=== PATIENT | female | born 1940 | race Caucasian/White ===

== ENCOUNTER → 2018-09-10 09:58 | Outpatient (CLI) | payer BC, SELFPAY ==
[2018-09-10 12:30] LABS: Anion Gap 10 (5-15); BUN 12 mg/dL (7-18); BUN/Creat Ratio 17.6 RATIO (10-20); Calcium,Total 8.9 mg/dL (8.5-10.1); Chloride 104 mmol/L (98-107); Cholesterol 138 mg/dL (200); Creatinine, Serum 0.68 mg/dL (0.55-1.02); EST Glomerular Filtration Rate 89 mL/min (>60); Est Glom Filt Rate - Afr Amer 107 mL/min (>60); Glucose 90 mg/dL (74-106); High Density Lipoprotein 33 mg/dL; Potassium 3.8 mmol/L (3.5-5.1); Sodium Level 143 mmol/L (136-145); T4 Total, Thyroxin 12.5 ug/dL (4.8-13.9); Thyroid Stim Hormone (TSH) 1.54 uIU/mL (0.358-3.74); Triglycerides 154 mg/dL; Very Low Density Lipoprotein 31 mg/dL (5-40)
== END ==
PROVIDERS: Family Provider Family Medicine; PCP Family Medicine; Visit Provider Family Medicine
DX: I10 Essential (primary) hypertension (principal); E03.9 Hypothyroidism, unspecified
CPT/HCPCS: 36415; 80048; 80061; 84436; 84443

== ENCOUNTER → 2019-05-26 | Outpatient (CLI) | payer BC, SELFPAY ==
[2019-05-26 12:42] LABS: Anion Gap 7 (5-15); BUN 14 mg/dL (7-18); BUN/Creat Ratio 17.8 RATIO (10-20); Calcium,Total 9.1 mg/dL (8.5-10.1); Chloride 104 mmol/L (98-107); Creatinine, Serum 0.79 mg/dL (0.55-1.02); EST Glomerular Filtration Rate 75 mL/min (>60); Est Glom Filt Rate - Afr Amer 91 mL/min (>60); Glucose 91 mg/dL (74-106); Sodium Level 140 mmol/L (136-145)
== END | disposition home or self-care (01) ==
LOC: MFPLAB 09:49
PROVIDERS: Family Provider Family Medicine; PCP Family Medicine; Referring Provider Family Medicine; Visit Provider Family Medicine
DX: I10 Essential (primary) hypertension (principal)
CPT/HCPCS: 36415; 80048

== ENCOUNTER → 2019-11-24 10:07 | Outpatient (CLI) | payer BC, SELFPAY ==
[2019-11-24 13:15] LABS: Anion Gap 5 (5-15); BUN 13 mg/dL (7-18); BUN/Creat Ratio 16.6 RATIO (10-20); Calcium,Total 9.5 mg/dL (8.5-10.1); Chloride 104 mmol/L (98-107); Creatinine, Serum 0.78 mg/dL (0.55-1.02); EST Glomerular Filtration Rate 75 mL/min (>60); Est Glom Filt Rate - Afr Amer 91 mL/min (>60); Glucose 97 mg/dL (74-106); Potassium 3.9 mmol/L (3.5-5.1); Sodium Level 137 mmol/L (136-145); T4 Total, Thyroxin 13.4 ug/dL (4.8-13.9); Thyroid Stim Hormone (TSH) 1.88 uIU/mL (0.358-3.74)
== END ==
PROVIDERS: PCP Family Medicine; Visit Provider Family Medicine
DX: I10 Essential (primary) hypertension (principal); E03.9 Hypothyroidism, unspecified
CPT/HCPCS: 36415; 80048; 84436; 84443

== ENCOUNTER → 2020-05-24 09:44 | Outpatient (CLI) | payer BC, SELFPAY ==
[2020-05-24 12:46] LABS: Anion Gap 5 (5-15); BUN 15 mg/dL (7-18); BUN/Creat Ratio 19.6 RATIO (10-20); Calcium,Total 9.3 mg/dL (8.5-10.1); Chloride 104 mmol/L (98-107); Creatinine, Serum 0.76 mg/dL (0.55-1.02); EST Glomerular Filtration Rate 77 mL/min (>60); Est Glom Filt Rate - Afr Amer 93 mL/min (>60); Glucose 95 mg/dL (74-106); Potassium 3.7 mmol/L (3.5-5.1); Sodium Level 138 mmol/L (136-145)
== END ==
PROVIDERS: PCP Family Medicine; Referring Provider Family Medicine; Visit Provider Family Medicine
DX: I10 Essential (primary) hypertension (principal)
CPT/HCPCS: 36415; 80048

== ENCOUNTER → 2020-11-30 10:34 | Outpatient (CLI) | payer BC, SELFPAY ==
[2020-11-30 12:44] LABS: Microalbumin,Random Urine 7.8 mg/L (NO RANGE EST.)
[2020-11-30 13:06] LABS: Anion Gap 9 (5-15); BUN 15 mg/dL (7-18); BUN/Creat Ratio 19.6 RATIO (10-20); Calcium,Total 9.2 mg/dL (8.5-10.1); Chloride 102 mmol/L (98-107); Creatinine, Serum 0.77 mg/dL (0.55-1.02); EST Glomerular Filtration Rate 77 mL/min (>60); Est Glom Filt Rate - Afr Amer 93 mL/min (>60); Glucose 100 mg/dL (74-106); Potassium 3.8 mmol/L (3.5-5.1); Sodium Level 137 mmol/L (136-145); T4 Total, Thyroxin 11.5 ug/dL (4.8-13.9); Thyroid Stim Hormone (TSH) 1.26 uIU/mL (0.358-3.74)
== END ==
PROVIDERS: PCP Family Medicine; Referring Provider Family Medicine; Visit Provider Family Medicine
DX: E03.9 Hypothyroidism, unspecified (principal); I10 Essential (primary) hypertension
CPT/HCPCS: 36415; 80048; 82043; 84436; 84443

== ENCOUNTER → 2021-05-30 09:45 | Outpatient (CLI) | payer BC, SELFPAY ==
[2021-05-30 12:47] LABS: Anion Gap 6 (5-15); BUN 16 mg/dL (7-18); BUN/Creat Ratio 21.8 RATIO (10-20); Calcium,Total 9.2 mg/dL (8.5-10.1); Chloride 103 mmol/L (98-107); Creatinine, Serum 0.74 mg/dL (0.55-1.02); EST Glomerular Filtration Rate 81 mL/min (>60); Est Glom Filt Rate - Afr Amer 98 mL/min (>60); Glucose 93 mg/dL (74-106); Potassium 3.7 mmol/L (3.5-5.1); Sodium Level 137 mmol/L (136-145)
== END ==
PROVIDERS: PCP Family Medicine; Referring Provider Family Medicine; Visit Provider Family Medicine
DX: I10 Essential (primary) hypertension (principal)
CPT/HCPCS: 36415; 80048

== ENCOUNTER → 2022-06-13 | Outpatient (CLI) | payer BC, SELFPAY ==
[2022-06-13 12:29] LABS: Anion Gap 7 (5-15); BUN 13 mg/dL (7-18); BUN/Creat Ratio 17.7 RATIO (10-20); Calcium,Total 9.2 mg/dL (8.5-10.1); Chloride 100 mmol/L (98-107); Cholesterol 136 mg/dL (200); Creatinine, Serum 0.74 mg/dL (0.55-1.02); EST Glomerular Filtration Rate 80 mL/min (>60); Est Glom Filt Rate - Afr Amer 97 mL/min (>60); Glucose 97 mg/dL (74-106); High Density Lipoprotein 42 mg/dL; Potassium 3.7 mmol/L (3.5-5.1); Sodium Level 138 mmol/L (136-145); T4 Total, Thyroxin 10.1 ug/dL (4.8-13.9); Triglycerides 126 mg/dL; Very Low Density Lipoprotein 25 mg/dL (5-40)
== END | disposition home or self-care (01) ==
LOC: MFPLAB 10:05
PROVIDERS: PCP Family Medicine; Referring Provider Family Medicine; Visit Provider Family Medicine
DX: I10 Essential (primary) hypertension (principal); E03.9 Hypothyroidism, unspecified
CPT/HCPCS: 36415; 80048; 80061; 84436; 84443

== ENCOUNTER 2022-09-16 04:40 | Emergency (ER) | payer BC, SELFPAY ==
[2022-09-16 04:41] VITALS: BP 173/78; BP 188/82; PULSE 139; PULSE 80; RESP 17; RESP 18; TEMP 36.6; O2SAT 96; O2SAT 98; BMI 33.6
--- NOTE | 2022-09-16 05:00 | EKG12_ITS ---
Test Reason : CP Blood Pressure : / mmHG Vent. Rate : 073 BPM Atrial Rate : 073 BPM P-R Int : 240 ms QRS Dur : 084 ms QT Int : 394 ms P-R-T Axes : 038 019 036 degrees QTc Int : 434 ms Sinus rhythm with 1st degree A-V block with occasional Premature ventricular complexes Otherwise normal ECG Confirmed by ALEJANDRINA SANTILLAN, DOMINGA ([id number]), telegraph editor DANITA OBRIEN ([id number]) on 09/18/2022 11:24:52 AM Referred By: Vinnie Confirmed By:DOMINGA TINOCO MD
--- NOTE | 2022-09-16 05:06 | EX.ED.DYSGE1 ---
HPI History of Present Illness Chief Complaint: Chest Pain Narrative Narrative: Patient is an 82-year-old female with past medical history of hypertension hypothyroidism and PVCs. She states that throughout the day she has had bouts of midsternal chest discomfort. She describes this as a pressure. She states that if she passes gas or belches this seems to resolve her symptoms. She states there is been no nausea vomiting diaphoresis or shortness of breath associated with this. She states that the symptoms have been recurrent throughout the day and it was difficult for her to sleep. She states that she kept thinking how females present atypically for cardiac disease and had concerned so therefore comes in for evaluation. She does states she took a full-strength aspirin prior to arrival [facility] Medical History Congestive heart failure (CHF) History of left heart catheterization Home Medications aspirin 325 mg tablet 325 mg PO DAILY 09/16/22 [History Last Taken Unknown] dicyclomine 20 mg tablet 20 mg PO 4X/DAY PRN PRN Abdominal bloating/spasm #28 tabs 09/16/22 [Rx Last Taken Unknown] doxycycline hyclate 100 mg capsule 100 mg PO BID 7 days #14 caps 09/16/22 [Rx Last Taken Unknown] hydrochlorothiazide 12.5 mg tablet 12.5 mg PO DAILY 09/16/22 [History Last Taken Unknown] levothyroxine 50 mcg capsule 50 mcg PO DAILY 09/16/22 [History Last Taken Unknown] lisinopril 20 mg tablet 20 mg PO DAILY 09/16/22 [History Last Taken Unknown] metoprolol tartrate 50 mg tablet 50 mg PO DAILY 09/16/22 [History Last Taken Unknown] potassium chloride 2.5 mEq tablet 10 meq PO DAILY 09/16/22 [History Last Taken Unknown] zinc oxide 40 % topical ointment 1 applic topical DAILY #99 grams 09/16/22 [Rx Last Taken Unknown] Allergy/AdvReac Type Severity Reaction Status Date / Time Penicillins Allergy Itching Verified 09/16/22 04:45 Surgical History (Updated 09/16/22 @ 04:47 by Salena Dave) H/O: hysterectomy Hx of cholecystectomy Social History Smoking Status: Former smoker ROS ROS ED Constitutional Constitutional ED: Denies chills or fever(s) ENT ENT ED: Denies sore throat Cardiovascular Cardiovascular: Reports chest pain and palpitations; Denies racing heartbeat Respiratory/Chest Respiratory/Chest: Denies cough or dyspnea Gastrointestinal Gastrointestinal: Denies abdominal pain, diarrhea, nausea or vomiting Genitourinary Genitourinary ED: Denies dysuria Musculoskeletal Musculoskeletal: Denies back pain or myalgias Integumentary Denies rash Neurologic Neurologic: Denies headache(s) Hematologic/Lymphatic Hematologic/Lymphatic: Denies easy bleeding or easy bruising EXAM Physical Exam Const Vital Signs: 09/16/22 04:41 09/16/22 04:41 09/16/22 07:06 Temperature 97.9 F Temperature Source Temporal Pulse Rate 80 139 H 60 Respiratory Rate 18 17 14 Blood Pressure 188/82 H 173/78 H 118/65 Blood Pressure Mean 117 109 82 Pulse Ox 98 96 97 Oxygen Delivery Method Room Air Room Air Room Air Positive well nourished and well developed General Appearance ED: well developed HEENT HEENT Narrative: Normocephalic atraumatic Eyes PERRL and EOMs intact bilaterally Neck supple and no JVD Chest Wall palpation of chest normal Chest Narrative: No bony deformity or crepitance Resp normal respiratory effort and clear to auscultation bilaterally Cardio regular rate and regular rhythm Rate: other Other Details: Radial pulses are plus 2 out of 4 bilaterally are equal and symmetric Carotid pulses are equal and symmetric as well There is an occasional ectopic beat noted GI normal to inspection, nondistended, normoactive bowel sounds, non-tender, non-distended and no masses GI Narrative: No voluntary guarding or rigidity. No pulsatile mass or fluid wave Auscultation: normoactive bowel sounds Palpation: soft Extremity normal to inspection Extremity Narrative: No asymmetric edema no pitting edema negative Homans' sign bilaterally Neuro oriented x3 and CN's II-XII intact bilaterally Sensorium / Orientation: alert Psych mental status grossly normal Skin Skin Narrative: Along the left upper medial gluteal muscle/skin there is a small 1 cm by half centimeter area of erythema with skin breakdown and granulation tissue present. There is slight surrounding erythema concerning for developing cellulitis. No induration or fluctuance noted to suggest abscess. No lymphangitic streaking. No crepitance to suggest Everett's gangrene. MDM MDM MDM Narrative Medical decision making narrative: Patient presented to the ER slightly hypertensive but has a past medical history of this. Her report of atypical chest pain that seems to improve with belching and passing gas is not consistent with cardiac disease. However patient does have risk factors for CAD and secondary to this a basic cardiac work-up was obtained. Initial troponin was normal at 6 and delta shows slight variation with a 2-hour repeat at 8. Her chest x-ray revealed no acute findings. She was given oral Bentyl and did report improvement of her symptoms. Therefore at this time as EKG shows normal sinus rhythm initial and delta troponin is flat and patient's had improvement of symptoms with antispasmodic I do not feel there is need for further evaluation or treatment in the ER and she is otherwise safe for discharge. As the small area of soft tissue breakdown does not show changes consistent with a drainable abscess there is no need for incision and drainage. Lab Data Attestation: I reviewed the patient's lab results. Labs: Laboratory Results - last 24 hr 09/16/22 09/16/22 09/16/22 04:58 04:58 06:50 WBC 6.2 RBC 4.35 Hgb 13.2 Hct 40.4 MCV 92.9 MCH 30.3 MCHC 32.7 RDW Std Deviation 43.8 RDW Coeff of Ronan 12.7 Plt Count 198 MPV 10.1 Immature Gran % (Auto) 0.500 Neut % (Auto) 62.5 Lymph % (Auto) 22.7 Bath % (Auto) 11.0 H Eos % (Auto) 2.8 Baso % (Auto) 0.5 Absolute Neuts (auto) 3.9 Absolute Lymphs (auto) 1.40 Nucleated RBC % 0 Sodium 137 Potassium 4.1 Chloride 103 Carbon Dioxide 29.0 Anion Gap 5 BUN 15 Creatinine 0.87 Estim Creat Clear Calc 37.62 Est GFR (MDRD) Af Amer 80 Est GFR (MDRD) Non-Af 66 BUN/Creatinine Ratio 17.3 Glucose 105 Calcium 8.8 Magnesium 2.1 Troponin I High Sens 6 8 TSH 3.23 Radiography Diagnostic Testing: Clinical Impression(s) from Imaging Studies Chest X-Ray 09/16/22 05:20 IMPRESSION: No acute cardiopulmonary disease. Electronically Signed: Barry Keyes MD at 5:40 EST , Chest x-ray as interpreted by the emergency medicine physician reveals no acute infiltrate pneumothorax or pleural effusion Discharge Plan Triage Chief Complaint: Chest Pain ED Provider: Fortino [place] Dx/Rx/DC Orders Clinical Impression: Nonspecific chest pain, Cellulitis, gluteal, Hypertension Instructions: Cellulitis Dc, ED Chest Pain, Uncertain Cause Prescriptions: New dicyclomine 20 mg tablet 20 mg PO 4X/DAY PRN PRN (Reason: Abdominal bloating/spasm) Qty: 28 0RF zinc oxide 40 % ointment 1 applic topical DAILY Qty: 99 0RF doxycycline hyclate 100 mg capsule 100 mg PO BID 7 Days Qty: 14 0RF No Action aspirin 325 mg Tablet 325 mg PO DAILY lisinopril 20 mg Tablet 20 mg PO DAILY metoprolol tartrate 50 mg Tablet 50 mg PO DAILY potassium chloride 2.5 mEq Tablet 10 meq PO DAILY hydrochlorothiazide 12.5 mg Tablet 12.5 mg PO DAILY levothyroxine 50 mcg Capsule 50 mcg PO DAILY Primary Care Provider: Nette England Referrals: Nette England MD [Primary Care Provider] - Activity Restrictions/Additional Instructions: Please use the zinc oxide paste for barrier protection and take the doxycycline as directed to cover the small amount of cellulitis surrounding the wound. Your work-up today does not show any obvious signs of heart damage as a cause of your symptoms. Take the medication as directed to help control symptoms but if you have any further concerns or worsening of symptoms please return for repeat evaluation Disposition Disposition: Home, Self Care
[2022-09-16 05:08] LABS: Absolute Neutrophil Count 3.9 X10^3/uL (2.0-7.7); Basophil# 0.03 X10^3/uL; Basophil% 0.5 % (0-1); Eosinophil# 0.17 X10^3/uL; Eosinophils% 2.8 % (0-5); Hematocrit 40.4 % (37-47); Hemoglobin 13.2 g/dL (12.0-15.0); Lymphocyte % 22.7 % (19-41); Mean Corp Hgb Conc 32.7 g/dL (32-36); Mean Corpuscular Hgb 30.3 pg (27.0-32.0); Mean Corpuscular Volume 92.9 fL (81-99); Mean Platelet Vol. 10.1 fl (6.2-12.0); Monocyte# 0.68 X10^3/uL; NRBC Flagged by Analyzer 0 % (0-5); Neutrophil # 3.86 X10^3/uL (2.7-7.7); Neutrophil % 62.5 % (47-70); Platelet Count 198 K/mm3 (150-450); RBC Distribution Width CV 12.7 % (11.6-14.6); RBC Distribution Width SD 43.8 fl (35.1-43.9); Red Blood Count 4.35 M/mm3 (4.2-5.4); White Blood Count 6.2 K/mm3 (4.4-11.0)
[2022-09-16] MEDS: Dicyclomine 10 MG Capsule 20 MG PO (05:13)
--- NOTE | 2022-09-16 05:20 | RAD_ITS ---
INDICATION: chest pain EXAMINATION/TECHNIQUE: X-RAY - XR Chest 2 Views COMPARISON: None. FINDINGS: LINES/DEVICES: None. LUNGS: No consolidation, edema or effusion. No pneumothorax. MEDIASTINUM AND CARDIOVASCULAR STRUCTURES: Atherosclerotic calcifications. Cardiac and mediastinal contours are borderline enlarged. BONES AND SOFT TISSUES: Unremarkable. RAD/Chest PA and Lateral IMPRESSION: No acute cardiopulmonary disease. Electronically Signed: Barry Keyes MD at 5:40 EST ,
[2022-09-16 05:38] LABS: Anion Gap 5 (5-15); BUN 15 mg/dL (7-18); BUN/Creat Ratio 17.3 RATIO (10-20); Calcium,Total 8.8 mg/dL (8.5-10.1); Chloride 103 mmol/L (98-107); Creatinine, Serum 0.87 mg/dL (0.55-1.02); EST Glomerular Filtration Rate 66 mL/min (>60); Est Glom Filt Rate - Afr Amer 80 mL/min (>60); Estimated Creatinine Clearance 37.62 ml/min; Glucose 105 mg/dL (74-106); Magnesium 2.1 mg/dL (1.6-2.6); Potassium 4.1 mmol/L (3.5-5.1); Sodium Level 137 mmol/L (136-145); Thyroid Stim Hormone (TSH) 3.23 uIU/mL (0.358-3.74); Troponin-I HS 6 pg/mL (3.0-54.0)
[2022-09-16 07:06] VITALS: BP 118/65; PULSE 60; RESP 14; O2SAT 97
[2022-09-16 07:18] LABS: Troponin-I HS 8 pg/mL (3.0-54.0)
[2022-09-16 07:22] VITALS: BP 135/64; PULSE 82; RESP 16; TEMP 36.6; O2SAT 98
== END 2022-09-16 07:41 | disposition home or self-care (01) ==
PROVIDERS: Emergency Provider Emergency Medicine; PCP Family Medicine; Visit Provider Emergency Medicine
DX: R07.9 Chest pain, unspecified (principal); Z95.811 Presence of heart assist device; I11.0 Hypertensive heart disease with heart failure; I50.9 Heart failure, unspecified; L03.317 Cellulitis of buttock; E03.9 Hypothyroidism, unspecified; R00.2 Palpitations; Z79.899 Other long term (current) drug therapy; Z79.82 Long term (current) use of aspirin; Z87.891 Personal history of nicotine dependence
CPT/HCPCS: 71046; 80048; 83735; 84443; 84484; 85025; 93005; 99283; A4216

== ENCOUNTER → 2023-07-02 | Outpatient (CLI) | payer BC, SELFPAY ==
[2023-07-02 12:40] LABS: Microalbumin,Random Urine < 5.0 mg/L (NO RANGE EST.)
[2023-07-02 12:44] LABS: Anion Gap 7 (5-15); BUN 13 mg/dL (7-18); BUN/Creat Ratio 15.5 RATIO (10-20); Chloride 101 mmol/L (98-107); Cholesterol 137 mg/dL (200); Creatinine, Serum 0.84 mg/dL (0.55-1.02); EST Glomerular Filtration Rate 69 mL/min (>60); Est Glom Filt Rate - Afr Amer 84 mL/min (>60); Glucose 100 mg/dL (74-106); High Density Lipoprotein 39 mg/dL; Sodium Level 133 mmol/L (136-145); T4 Total, Thyroxin 11.7 ug/dL (4.8-13.9); Thyroid Stim Hormone (TSH) 2.75 uIU/mL (0.358-3.74); Triglycerides 158 mg/dL; Very Low Density Lipoprotein 32 mg/dL (5-40)
== END | disposition home or self-care (01) ==
LOC: MFPLAB 10:07
PROVIDERS: PCP Family Medicine; Visit Provider Family Medicine
DX: I10 Essential (primary) hypertension (principal); E03.9 Hypothyroidism, unspecified
CPT/HCPCS: 36415; 80048; 80061; 82043; 82570; 84436; 84443

== ENCOUNTER → 2025-01-04 | Outpatient (CLI) | payer MEDICARE, SELFPAY ==
[2025-01-04 12:47] LABS: Anion Gap 12 (5-15); BUN 15 mg/dL (4-19); BUN/Creat Ratio 17.1 RATIO (10-20); Calcium,Total 9.7 mg/dL (7.6-11.0); Carbon Dioxide 23.7 mmol/L (21.0-32.0); Chloride 99 mmol/L (98-108); Cholesterol 137 mg/dL (<=200); Creatinine, Serum 0.86 mg/dL (0.70-1.20); EST Glomerular Filtration Rate 66 (>60); Glucose 102 mg/dL (70-99); High Density Lipoprotein 39 mg/dL; Low Density Lipoprotein Calc. 65 mg/dL; Potassium 4.2 mmol/L (3.3-5.1); Sodium Level 135 mmol/L (133-145); T4 Total, Thyroxin 8.8 ug/dL (4.8-13.9); Triglycerides 166 mg/dL; Very Low Density Lipoprotein 33 mg/dL (5-40); cholesterol:hdl ratio screen 3.49
[2025-01-04 13:10] LABS: Protein, Urine (Random) < 6.0 mg/dL (0.0-12.0); Protein:Creat Ratio UNABLE TO CALCULATE mg/g CRE (0-200)
== END | disposition home or self-care (01) ==
LOC: MTLAB 10:39
PROVIDERS: PCP Family Medicine; Referring Provider Family Medicine; Visit Provider Family Medicine
DX: I10 Essential (primary) hypertension (principal); E03.9 Hypothyroidism, unspecified
CPT/HCPCS: 80048; 80061; 82570; 84156; 84436; 84443

== ENCOUNTER → 2025-08-12 | Outpatient (CLI) | payer MEDICARE, SELFPAY ==
--- NOTE | 2025-08-12 08:18 | BD_ITS ---
PROCEDURE: DEXA BONE DENSITY STUDY N/A REASON FOR EXAM: F, age 85 y/o . Postmenopausal. TECHNIQUE: Procedure Code: BDDBD Modality: DX Procedure: DEXA BONE DENSITY STUDY COMPARISON: July 30, 2012. FINDINGS: BMD and T-SCORES Lumbar spine: 1.163 g/cm2, T-score 1.1 Levels: L1 through L4 Change from prior: Loss of 0.4%. Left femoral neck: 0.740 g/cm2, T-score -1.0 Femoral neck comparison data not recommended for monitoring change. Left total hip: 1.100 g/cm2, T-score 1.3 Change from prior: Loss of 3.1%. Right femoral neck: 0.724 g/cm2, T-score -1.1 Femoral neck comparison data not recommended for monitoring change. Right total hip: 1.043 g/cm2, T-score 0.8 Change from prior: Loss of 11.9%. The World Health Organization has defined the following categories based on bone density: Normal bone density: T-score equal to or greater than -1.0 Osteopenia: T-score between -1.0 and -2.5 Osteoporosis: T-score equal to or less than -2.5 FRAX (or Comparable) Fracture Risk Assessment: 10 Year Probability of Fracture: Major Osteoporotic Fracture: 11% Hip Fracture: 2.5% (Note: FRAX is not to be reported in setting of normal range bone density, osteoporosis on DEXA, known history of osteoporosis, prior osteoporotic hip or vertebral fracture, or for any patient undergoing pharmacological treatment for bone loss.) The National Osteoporosis Foundation (NOF) recommends pharmacological treatment for patients with a FRAX 10-year risk of 3% or higher for a hip fracture, or 20% or higher for a major osteoporotic fracture, to prevent osteoporosis and reduce fracture risk. The patient does meet the pharmacological treatment recommendations for prevention of osteoporosis. BD/Dexa Bone Density Study IMPRESSION: OSTEOPENIA. Recommend follow-up as clinically warranted. Reading Location: [id number]
== END | disposition home or self-care (01) ==
LOC: OPBD 08:17
PROVIDERS: PCP Family Medicine
DX: Z13.820 Encounter for screening for osteoporosis (principal); M85.88 Other specified disorders of bone density and structure, other site
CPT/HCPCS: 77080